=== PATIENT | male | born 1940 | race Caucasian/White ===

== ENCOUNTER 2022-06-10 06:03 | Day surgery (SDC) | payer OTHER ==
[2022-06-06 15:20] VITALS: BMI 29.9
[2022-06-10] MEDS ORDERED: POVIDONE-IODINE 5% OPHTHALMIC PREP 30 ML SOLUTION ONE (07:10)
[2022-06-10] MEDS ORDERED: TETRACAINE 0.5% OPHTH SOLN 2 ML BOTTLE ONE (07:10)
[2022-06-10] MEDS ORDERED: ERYTHROMYCIN 0.5% OPHTHALMIC OINTMENT 3.5 GM TUBE ONE (07:10)
[2022-06-10] MEDS ORDERED: ceFAZolin SODIUM 1 GM VIAL ONE ×2 (07:10→07:58)
[2022-06-10] MEDS ORDERED: BUPIVACAINE HCL 50 ML ONE (07:10)
[2022-06-10] MEDS ORDERED: THROMBIN (BOVINE) 5,000 UNIT VIAL TP ONE (07:11)
[2022-06-10] MEDS ORDERED: LIDOCAINE 1%-EPI 1:100,000 30 ML MDV IJ ONE (07:11)
[2022-06-10] MEDS ORDERED: MIDAZOLAM HCL 2 MG/2 ML SINGLE DOSE VIAL ONE (07:27)
[2022-06-10] MEDS ORDERED: PROPOFOL 20 ML ONE ×2 (07:27→08:44)
[2022-06-10] MEDS ORDERED: METOPROLOL TARTRATE 5 MG/5 ML VIAL ONE (07:47)
[2022-06-10] MEDS ORDERED: DEXAMETHASONE SOD PHOSPHATE 4 MG/1 ML VIAL ONE (08:33)
[2022-06-10] MEDS ORDERED: ONDANSETRON 4 MG/2 ML VIAL ONE (08:33)
[2022-06-10] MEDS ORDERED: ONDANSETRON 4 MG/2 ML VIAL IVPUSH PRN (09:03)
[2022-06-10] MEDS ORDERED: LACTATED RINGERS SOLUTION 1,000 ML IV SCH (09:15)
[2022-06-10 09:24] VITALS: TEMP 97.8
[2022-06-10 09:31] VITALS: RESP 18
[2022-06-10 10:46] VITALS: BP 128/79; PULSE 89
== END 2022-06-10 10:40 | disposition home or self-care (01) ==
LOC: FASU 06:03
PROVIDERS: ATTEND Ophthalmology
PROC: 0KX10Z2 Transfer Facial Muscle with Skin and Subcutaneous Tissue, Open Approach (ICD-10-PCS; 2022-06-10)
PROC: 08SQ0ZZ Reposition Right Lower Eyelid, Open Approach (ICD-10-PCS; principal; 2022-06-10 08:00)
DX: C44.1122 Basal cell carcinoma of skin of right lower eyelid, including canthus (principal)
CPT/HCPCS: 94760